=== PATIENT | male | born 1990 | race Two or more races ===

== ENCOUNTER 2018-05-30 23:23 | Emergency (ER) | payer MEDICAID ==
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
[2018-05-31 00:48] VITALS: BP 135/79
== END 2018-05-31 00:47 | disposition home or self-care (01) ==
PROC: 0HQ1XZZ Repair Face Skin, External Approach (ICD-10-PCS; principal; 2018-05-30)
DX: S01.81XA Laceration without foreign body of other part of head, initial encounter (principal); Y04.8XXA Assault by other bodily force, initial encounter